=== PATIENT | male | born 1995 | race Asian ===

== ENCOUNTER 2018-04-26 00:35 | Emergency (ER) | payer OTHER ==
[~2018-04-26] VITALS: Ht 170.2 cm; Wt 100.2 kg
[2018-04-26 00:36] VITALS: BP 130/81
== END 2018-04-26 03:59 | disposition home or self-care (01) ==
LOC: ED 03:45
DX: S02.32XA Fracture of orbital floor, left side, initial encounter for closed fracture (principal); Y04.0XXA Assault by unarmed brawl or fight, initial encounter; Y93.89 Activity, other specified; Y99.0 Civilian activity done for income or pay; Y92.69 Other specified industrial and construction area as the place of occurrence of the external cause
CPT/HCPCS: 70486; 99284